=== PATIENT | female | born 1960 | race Caucasian/White ===

== ENCOUNTER 2021-05-14 08:43 | Outpatient (CLI) | payer OTHER ==
--- NOTE | 2021-05-22 08:54 | Mammography Report ---
BILATERAL DIGITAL SCREENING MAMMOGRAM 3D/2D: 05/14/2021 CLINICAL: Routine screening. No prior exams were available for comparison. The tissue of both breasts is predominantly fatty. No significant masses, calcifications, or other findings are seen in either breast. IMPRESSION: NEGATIVE There is no mammographic evidence of malignancy. A 1 year screening mammogram is recommended. This exam was interpreted at Station ID: [id number]. NOTE: For mammograms, a report in lay terms will be sent to the patient. Approximately 15% of breast malignancies will not be visualized mammographically. In the management of a palpable breast mass, a negative mammogram must not discourage biopsy of a clinically suspicious lesion. Electronically Signed By: Eric Camp M.D., jr/candis:05/20/2021 09:36:41 ACR BI-RADS Category 1: Negative 3341F PARENCHYMAL PATTERN: (F) - The breast(s) demonstrate(s) diffuse fatty replacement. BI-RADS CATEGORY: (1) - 1 RECOMMENDATION: (ANNUAL) - Recommend routine annual screening mammography. [id number] 1 year screening LATERALITY: (B)
== END 2021-05-14 08:44 | disposition home or self-care (01) ==
LOC: DI.N 08:43
DX: Z12.31 Encounter for screening mammogram for malignant neoplasm of breast (principal)

== ENCOUNTER 2023-12-02 20:37 | Emergency (ER) | payer MEDICARE, OTHER ==
[2023-12-02 20:57] VITALS: BP 145/87; O2SAT 96
--- NOTE | 2023-12-02 21:05 | ED Physician Documentation ---
PD HPI LOWER EXT INJURY - Stated complaint Stated Complaint: RT LEG INJ - Chief complaint Chief Complaint: Trauma Ext - History obtained from History obtained from: Patient - Additional information Additional information: She has been having some minor issues with the knee for some time but today she was coming out of something and going down some stairs and she felt a pop and now cannot walk or bear weight on it. No other injuries. She did not fall. Declines pain medication on initial evaluation. Its only really painful if she is trying to walk. PD PAST MEDICAL HISTORY - Present Medications Home Medications: Ambulatory Orders Medication Instructions Recorded Confirmed No Known Home Medications 12/19/21 12/19/21 - Allergies Allergies/Adverse Reactions: Allergies Allergy/AdvReac Type Severity Reaction Status Date / Time No Known Drug Allergies Allergy Verified 12/02/23 20:48 PD ED PE NORMAL - Vitals Vital signs reviewed: Yes - General General: Alert and oriented X 3, No acute distress - Extremities Extremities: Other (The right knee is nontender and there is no visible effusion. She does have pain and laxity with anterior drawer sign as well as with grind testing.) - Neuro Neuro: Alert and oriented X 3 Results - Vitals Vitals: Vital Signs - 24 hr 12/02/23 20:49 Temperature 36.1 C L Heart Rate 59 L Respiratory 18 Rate Blood Pressure 145/87 H O2 Saturation 96 Oxygen O2 Source Room air - Rads (name of study) R knee XR- trace effusion, no frx. Relevant Findings:: Final report received, EMP independent interpretation of test PD Medical Decision Making - ED course ED course: Exam concerning for internal derangement involving tendon or meniscus. NAD on XR. Placed in immobilizer, has walker at home. Will f/u ortho. Departure - Departure Disposition: 01 Home, Self Care Clinical Impression: Internal derangement of right knee Condition: Good Record reviewed to determine appropriate education?: Yes Instructions: ED Meniscal Injury Knee Poss, ED Knee Injury Cruciate Ligament Follow-Up: Orthopedic Care [Provider Group] Comments: As discussed, based on the examination concerned about the ligaments and the meniscus in your knee. You should follow-up with orthopedics for reexamination and would not be surprised if they were to order an MRI. Return for new or worsening symptoms. Since the x-ray is normal it is okay to walk and bear weight on it if you are able to while you are wearing the splint. You do not need to wear the splint if you are in bed or trying to bathe. Forms: PCP List Discharge Date/Time: 12/02/23 22:10
--- NOTE | 2023-12-02 23:12 | XRAY Report ---
PROCEDURE: Knee 4+V RT INDICATIONS: knee inj TECHNIQUE: 5 views of the knee were acquired. COMPARISON: None. FINDINGS: Bones: No acute fractures or dislocations. No suspicious bony lesions. Soft tissues: Trace knee joint effusion. No suspicious soft tissue calcifications. IMPRESSION: No acute osseous abnormality. If there is clinical concern or persistent symptoms, additional imaging such as repeat radiographs or advanced imaging (e.g. CT, MRI) may be helpful for further evaluation. Reviewed by: Damon Tompkins MD on 12/02/2023 11:11 PM PDT Approved by: Damon Tompkins MD on 12/02/2023 11:11 PM PDT Station ID: [id number]
== END 2023-12-02 22:10 | disposition home or self-care (01) ==
LOC: ED 20:37
DX: M23.8X1 Other internal derangements of right knee (principal)
CPT/HCPCS: 99283; 99284